=== PATIENT | male | born 1995 | race Caucasian/White ===

== ENCOUNTER 2016-07-17 20:38 | Emergency (ER) | payer OTHER ==
[2016-07-17] MEDS ORDERED: PREDNISONE 20 MG TABLET ONE (23:08)
== END 2016-07-17 23:46 | disposition home or self-care (01) ==
LOC: ED 20:38
DX: M54.40 Lumbago with sciatica, unspecified side (principal); R20.0 Anesthesia of skin; W18.30XD Fall on same level, unspecified, subsequent encounter; Y92.69 Other specified industrial and construction area as the place of occurrence of the external cause; Y99.0 Civilian activity done for income or pay